=== PATIENT | male | born 1955 | race Caucasian/White ===

== ENCOUNTER 2023-03-03 15:24 | Inpatient (IN) | payer MEDICARE, OTHER ==
[~2023-03-03] VITALS: Ht 180.3 cm; Wt 92.1 kg
--- NOTE | 2023-03-03 16:00 | NUR ---
Received pt 67 YRS MALE FROM HOME by gustavo C/O DIZZNESS AND weekness unable to ambulate
--- NOTE | 2023-03-03 16:30 | NUR ---
RISA AT BED SIDE (PHILIPPE NEELY )
[2023-03-03] MEDS ORDERED: IV NS 0.9% 500 ML BAG IV ONE (17:00)
--- NOTE | 2023-03-03 17:00 | NUR ---
TO CT SCAN OF HEAD
--- NOTE | 2023-03-03 17:14 | NUR ---
MOVE SHEET SUBMITTED.
[2023-03-03 17:33] LABS: BASOPHILS # (AUTO) 0.1 K/uL (0.0-0.2); BASOPHILS % (AUTO) 0.7 % (0.0-2.0); EOSINOPHILS % (AUTO) 0.4 % (0.0-6.0); HEMATOCRIT 44 % (39-51); HEMOGLOBIN 14.4 g/dL (13.5-17.5); MEAN CORPUSCULAR HGB CONC 33 g/dl (31.0-36.0); MEAN CORPUSCULAR VOLUME 101 fL (80-96); MONOCYTES # (AUTO) 0.6 K/uL (0.1-1.30); MONOCYTES % (AUTO) 7.1 % (2.0-12.0); NEUTROPHILS # (AUTO) 6.9 K/uL (1.8-8.9); NEUTROPHILS % (AUTO) 79.8 % (43.0-81.0); PLATELET COUNT (AUTO) 170 K/uL (150-450); RED BLOOD CELL COUNT(AUTO) 4.37 MIL/uL (4.5-6.0); WHITE BLOOD COUNT (AUTO) 8.7 K/uL (4.3-11.0)
[2023-03-03 17:55] LABS: CALCIUM, SERUM 9.1 mg/dL (8.5-10.1); CARBON DIOXIDE 26 mmol/L (21-32); CHLORIDE 106 mmol/L (98-107); GLUCOSE 117 mg/dL (74-106); POTASSIUM 3.8 mmol/L (3.5-5.1); SODIUM SERUM 140 mmol/L (136-145); UREA NITROGEN, BLOOD 11 mg/dL (7-18)
[2023-03-03 18:01] LABS: BILIRUBIN,URINE NEGATIVE (NEGATIVE); COLOR,URINE YELLOW (YELLOW); LEUKOCYTE ESTERASE ,URINE NEGATIVE (NEGATIVE); NITRITE, URINE NEGATIVE (NEGATIVE); PROTEIN,URINE NEGATIVE (NEGATIVE); UGLUCOSE NEGATIVE (NEGATIVE); UROBILINOGEN,URINE 0.2 EU/dL (0.2)
[2023-03-03 18:01] LABS: ALANINE AMINOTRANSFERASE 40 U/L (12-78); ALBUMIN 3.9 g/dL (3.4-5.0); ALKALINE PHOSPHATASE 79 U/L (46-116); ASPARTATE AMINOTRANSFERASE 27 U/L (15-37); BILIRUBIN,DIRECT 0.2 mg/dL (0.0-0.2); BILIRUBIN,TOTAL 0.6 mg/dL (0.2-1.0); TOTAL PROTEIN, SERUM 7.5 g/dL (6.4-8.2)
--- NOTE | 2023-03-03 18:45 | NUR ---
BLOOD DROW BY LAB TACH
[2023-03-03] MEDS ORDERED: ENOXAPARIN SODIUM 40 MG/0.4 ML DISP.SYRIN SQ SCH (19:00)
--- NOTE | 2023-03-03 19:00 | NUR ---
COVID SWAB SENT TO LAB
--- NOTE | 2023-03-03 19:10 | NUR ---
HAND OFF PORFIRIO JAMES
--- NOTE | 2023-03-03 19:11 | NUR ---
U/S TECH FOR ECHO AT BEDSIDE
[2023-03-03 19:16] LABS: BACTERIA,URINE None seen /HPF (None Seen); SQUAMOUS EPITHELIAL CELL,UR 0-2 /HPF (None Seen); WBC,URINE 0-2 /HPF (0-3)
--- NOTE | 2023-03-03 19:17 | NUR ---
ECCHOCARDIO GRAM AT BED SIDE
--- NOTE | 2023-03-03 19:20 | NUR ---
RECEIVED REPORT FROM DAVID JAMES FOR [facility]. NO BEDS AVAILABLE AT THIS TIME FOR ADMISSION.
[2023-03-03] MEDS ORDERED: ENOXAPARIN SODIUM 40 MG/0.4 ML DISP.SYRIN SQ ONE (19:46)
[2023-03-03] MEDS ORDERED: ASPIRIN 81 MG TAB.CHEW ONE (19:47)
[2023-03-03] MEDS: ASPIRIN 81 MG TAB.CHEW PO SCH (19:47)
--- NOTE | 2023-03-03 20:30 | NUR ---
PT TRANSPORTED TO [facility] VIA ACLS PROTOCOL
[2023-03-03 20:32] VITALS: BP 161/99
--- NOTE | 2023-03-03 20:35 | NUR ---
ADMISSION 67 y/o male Alert Oriented x4. Skin intact, no pressure injury. Ambulating independently, denies pain. No c/o dizziness, denies headache. [place] to room, unit, staff. Instructed on how to use call light device, verbalized understanding. Will cont on admission process.
--- NOTE | 2023-03-03 21:00 | NUR ---
SWALLOW SCREEN Patient sitting upright 90 degrees, remains Alert Oriented x4. Swallow screen at bedside, no signs of coughing, no choking during or immediately after completion of test. Patient passes swallow screen.
--- NOTE | 2023-03-03 22:08 | NUR ---
NIHHS QS NIH stroke scale score Zero, No stroke base on NIHHS score parameters. Informed MARINE ENGINE MACHINIST APPRENTICE Bonny with results.
--- NOTE | 2023-03-03 22:54 | NUR ---
MRI QUESTIONNAIRE Medical hx. reviewed with patient, MRI questionnaire completed.
[2023-03-04] VITALS: BP 147/93
[2023-03-04 04:00] VITALS: BP 149/90
[2023-03-04 05:57] LABS: BASOPHILS # (AUTO) 0.1 K/uL (0.0-0.2); BASOPHILS % (AUTO) 1.5 % (0.0-2.0); EOSINOPHILS % (AUTO) 1.6 % (0.0-6.0); HEMATOCRIT 43 % (39-51); HEMOGLOBIN 14.8 g/dL (13.5-17.5); LYMPHOCYTES # (AUTO) 1.3 K/uL (0.8-4.8); LYMPHOCYTES % (AUTO) 20.8 % (20.0-44.0); MEAN CORPUSCULAR HGB CONC 34 g/dl (31.0-36.0); MEAN CORPUSCULAR VOLUME 98 fL (80-96); MONOCYTES # (AUTO) 0.6 K/uL (0.1-1.30); NEUTROPHILS # (AUTO) 4.1 K/uL (1.8-8.9); NEUTROPHILS % (AUTO) 66.1 % (43.0-81.0); PLATELET COUNT (AUTO) 176 K/uL (150-450); RED BLOOD CELL COUNT(AUTO) 4.39 MIL/uL (4.5-6.0); WHITE BLOOD COUNT (AUTO) 6.2 K/uL (4.3-11.0)
--- NOTE | 2023-03-04 05:59 | NUR ---
END OF SHIRT REPORT Patient in bed, Alert Oriented x4. Oxygen sat high 90's in RA. Sinus rhythm in the pvc monitor HR 74. Left hand IV peripheral line intact. Ambulated to the bathroom, no device used during ambulation, no c/o dizziness during the night. No c/o headache, no N/V. Plan for MRI brain, Neuro consult, PT/OT today. Will endorse to oncoming RN.
[2023-03-04 06:25] LABS: THYROID STIMULATING HORMONE 5.189 uIU/mL (0.358-3.74)
[2023-03-04 06:29] LABS: CALCIUM, SERUM 8.8 mg/dL (8.5-10.1); CREATININE 0.9 mg/dL (0.6-1.3)
--- NOTE | 2023-03-04 07:45 | NUR ---
BANDSAW OPERATOR OPENING NOTES RECEIVED PATIENT AWAKE IN BED USING HIS PHONE. PATIENT IS A/OX4. NO PAIN NOTED. NO SOB NOTED. NO DISTRESS NOTED. ON ROOM AIR AND TOLERATING WELL. ON TELE MONITOR READING SR HEART RATE 75. AMBULATORY AND ABLE TO MAKE NEEDS KNOWN. NEURO CHECKS DONE. PATIENT ABLE TO MOVE ALL EXTREMITIES. NO SLURRED SPEECH NOTED. FACIAL SYMMETRY. NO LIP DROOPING NOTED. NO ANY FACIAL DROOPING NOTED. NO CHANGE IN ACTIVITY NOTED. PATIENT ABLE TO SWALLOW WATER WITHOUT ANY DIFFICULTY. NO DRIFT ON ANY EXTREMITIES NOTED. IV ACCESS NOTED ON LEFT HAND G # 18 SL. ALL NEEDS ATTENDED. BED LOCKED IN LOWEST POSITION. CALL LIGHT AND TABLE WITHIN REACH. SIDE RAILS UP TIMES 2. WILL CONTINUE TO MONITOR CLOSELY DURING SHIFT.
[2023-03-04 08:00] VITALS: BP 152/95
[2023-03-04] MEDS: ASPIRIN 81 MG TAB.CHEW PO SCH (08:35)
[2023-03-04 10:49] LABS: CHOLESTEROL 194 mg/dL (<200); HDL CHOLESTEROL 59 mg/dL (40-60); LDL 116 mg/dL (0-99); TRIGLYCERIDES 94 mg/dL (30-150)
--- NOTE | 2023-03-04 12:13 | NUR ---
RN NOTE PATIENT TOLD ME THAT AFTER HIS SURGERY (CABG 2017), THE DOCTOR TOLD HIM THAT THEY PUT A PLATE IN HIS CHEST AND HE'S NOT SURE IF IT IS COUNTED A METAL. SPOKE TO BETHANIE (MRI) AND TOLD HIM THE HISTORY OF PATIENT CABG YEAR 2017 AND ASKED IF THE PLATE WAS SAFE AND COUNTED A METAL. BETHANIE TOLD ME THAT THE PLATE WAS SAFE FOR MRI.
[2023-03-04] MEDS ORDERED: ASPI-1420 PO (14:11)
[2023-03-04] MEDS ORDERED: MECL-159 PO (14:11)
[2023-03-04] MEDS ORDERED: ATOR40TA PO (14:11)
[2023-03-04 15:49] VITALS: BP 140/91
--- NOTE | 2023-03-04 18:36 | NUR ---
POPULATION HEALTH COACH CLOSING NOTE PATIENT AWAKE IN BED USING HIS PHONE. PATIENT IS A/OX4. NO PAIN NOTED. NO SOB NOTED. NO DISTRESS NOTED. ON ROOM AIR AND TOLERATING WELL. ON TELE MONITOR READING SR HEART RATE 75. AMBULATORY AND ABLE TO MAKE NEEDS KNOWN. NEURO CHECKS DONE. PATIENT ABLE TO MOVE ALL EXTREMITIES. NO SLURRED SPEECH NOTED. FACIAL SYMMETRY. NO LIP DROOPING NOTED. NO ANY FACIAL DROOPING NOTED. NO CHANGE IN ACTIVITY NOTED. PATIENT ABLE TO SWALLOW WATER WITHOUT ANY DIFFICULTY. NO DRIFT ON ANY EXTREMITIES NOTED. IV ACCESS NOTED ON LEFT HAND G # 18 SL AND LEFT FOREARM G#18. ALL MEDS GIVEN ORDERED. ALL NEEDS ATTENDED. BED LOCKED IN LOWEST POSITION. CALL LIGHT AND TABLE WITHIN REACH. SIDE RAILS UP TIMES 2. WILL ENDORSE TO THE STEM LEAD FORMER NURSE FOR [facility].
[2023-03-04] MEDS ORDERED: IOHEXOL-350 100 ML VIAL IV ONE (18:42)
[2023-03-04] MEDS ORDERED: IV NS 0.9% 250 ML IV ONE (18:42)
--- NOTE | 2023-03-04 19:58 | NUR ---
ONLINE MARKETING ANALYST OPENING NOTES - RECEIVED PATIENT WALKING IN THE HALLWAY. A/O X4. BREATHING EVEN AND NON-LABORED ON ROOM AIR. NO C/O PAIN OR DISCOMFORT AT THIS TIME. HAS THE FF IV ACCESS: LEFT HAND AND LEFT FOREARM #18G, BOTH SALINE LOCKED. NO S/S OF INFILTRATION NOTED. AWAITING FOR CTA RESULTS. SAFETY PRECAUTIONS IN PLACE: BED LOCKED AND IN LOW POSITION, SIDE RAILS UP X2, CALL LIGHT WITHIN REACH. WILL CONTINUE PLAN OF CARE.
[2023-03-04 20:00] VITALS: BP_SYST 117; BP_SYST 132; BP_DIAS 54; BP_DIAS 88
[2023-03-04] MEDS ORDERED: ENOXAPARIN SODIUM 40 MG/0.4 ML DISP.SYRIN SQ SCH (20:00)
--- NOTE | 2023-03-04 21:13 | NUR ---
HEAD/NECK CTA RESULTS NOT YET AVAILABLE. PATIENT AWARE AND ASKING IF HE CAN LEAVE TOMORROW. ASKED ORAL ANDERSON, SHE WILL CHECK IF ALLOWED D/T INSURANCE. Addendum: 03/04/23 at 2159 by February SANDRA JAMES SENT RESULT TO SATNAM CHAUDHARY NP. AWAITING FOR RESPONSE.
[2023-03-04] MEDS ORDERED: ATORVASTATIN 10 MG TABLET PO SCH (22:00)
--- NOTE | 2023-03-04 22:09 | NUR ---
HEAD CTA NOT CLEAR, PLACE PATIENT BACK TO TELE MONITORING. SINUS RHYTHM AT 69 BPM AT THIS TIME.
[2023-03-05] VITALS: BP 139/87
[2023-03-05 04:00] VITALS: BP_SYST 150; BP_DIAS 55; BP_DIAS 96
--- NOTE | 2023-03-05 06:49 | NUR ---
WATCH SUPERVISOR CLOSING NOTES - PATIENT IN BED, ABLE TO VERBALIZE NEEDS. DENIES DIZZINESS, HEADACHE, CHEST PAIN, NAUSEA AND VOMITING. NIHSS SCALE 0. SATURATING WELL ON ROOM AIR. AFEBRILE. TELE MONITOR SHOWS SINUS BRADYCARDIA AND SINUS RHYTHM AT 52-79 BPM. LEFT HAND AND LEFT FOREARM IV ACCESS INTACT, PATENT AND FLUSHING. ALL DUE MEDS GIVEN AND NEEDS ATTENDED. SAFETY PRECAUTIONS MAINTAINED. WILL ENDORSE TO AM RN FOR [facility].
[2023-03-05 07:00] VITALS: BP 143/89
--- NOTE | 2023-03-05 07:30 | NUR ---
apricot packer Opening Note Received pt care from cage shift manager. Pt A/O*4, follow commands, and no distress. Denied pain at this moment. Skin warm, dry and intact. IV left hand 18G SL and left forearm 19G SL. Respiration unlabored, even, and clear lung sounds. monitoring coordinator sinus rhythm at 72bpm. Bowel sounds present all quadrants. hand category development manager equally strong. CSM intact all extremities. All safety precaution in place. Bed in low position and locked. Call light and table in reach. Side rails up*3. Will continue monitoring pt. Spoke to the neuro DRYING FRAME OPERATOR. Pt is okay to ambulate within normal BP and no sign of dizziness. BP143/89 at 1900 and no sign of dizziness. Pt remains NPO and hold ASA and anticoagulant for pending procedure.
[2023-03-05] MEDS: ASPIRIN 81 MG TAB.CHEW PO SCH (08:05)
[2023-03-05] MEDS ORDERED: AMLODIPINE BESYLATE 5 MG TABLET PO SCH (09:00)
[2023-03-05] MEDS ORDERED: GADOTERATE MEGLUMINE 10 MMOL/20 ML VIAL IV ONE (11:12)
[2023-03-05 12:00] VITALS: BP 153/95
[2023-03-05] MEDS ORDERED: APIX5TAB PO (15:38)
[2023-03-05] MEDS ORDERED: APIXABAN 5 MG TABLET PO ONE (17:00)
--- NOTE | 2023-03-05 17:00 | NUR ---
kitchen worker Discharging Note Pt was medically stable to D/C per MD order. Vital within normal limits. Pt A/O*4, follow commands, and no distress. Denied pain at the discharge. Skin warm, dry and intact. IV left hand 18G and left forearm 19G are removed. pt ID band removed. IV site has no redness or swelling. Respiration unlabored, even, and clear lung sounds. playground monitor removed and returned to quality assurance monitor chassis. Bowel sounds present all quadrants. hand sailor equally strong. CSM intact all extremities. Discharge education (including med teaching) was given. Discharge paperwork and belonging lists signed out. Pt ambulatory left unit. Escorted pt to lobby by this RN. Pt waiting for grand son, will leave via a private car.
== END 2023-03-05 17:00 | disposition home or self-care (01) | DRG 67 ==
LOC: ER 16:50 → TELE 19:52
PROVIDERS: ADMIT Student in an Organized Health Care Education/Training Program; ATTEND Nurse Practitioner Family
DX: I65.01 Occlusion and stenosis of right vertebral artery (principal); I25.10 Atherosclerotic heart disease of native coronary artery without angina pectoris; Z95.1 Presence of aortocoronary bypass graft; Z91.199 Patient's noncompliance with other medical treatment and regimen due to unspecified reason; E78.5 Hyperlipidemia, unspecified; R29.700 NIHSS score 0; Z20.822 Contact with and (suspected) exposure to COVID-19; I77.74 Dissection of vertebral artery
CPT/HCPCS: 36415; 70450-TC; 70496-TC; 70498-TC; 70553-TC; 71045-TC; 80048-TC; 80061-TC; 80076-TC; 81001; 84439-TC; 84443-TC; 84484-TC; 85025-TC; 85730-TC; 87081-TC; 92526; 92611-TC; 93307-TC; 97110-TC; 97112-TC; 97116-TC; 97535-TC; A9575; C9803; G0378; J1650; J7040; J7050; Q9967